=== PATIENT | male | born 1980 | race Caucasian/White ===

== ENCOUNTER 2018-03-04 12:35 | Emergency (ER) | payer SELFPAY ==
[~2018-03-04] VITALS: Ht 177.8 cm; Wt 80.5 kg
[~2018-03-04 12:35] MED LIST: ULTRAM 50MG TAB50 MG PO
[2018-03-04 12:44] VITALS: BP 130/79; PULSE 79; TEMP 98.3
== END 2018-03-04 14:50 | disposition home or self-care (01) ==
LOC: COL.ER 12:35
DX: S61.213A Laceration without foreign body of left middle finger without damage to nail, initial encounter (principal); S61.211A Laceration without foreign body of left index finger without damage to nail, initial encounter; Z23 Encounter for immunization; W26.8XXA Contact with other sharp object(s), not elsewhere classified, initial encounter; Y92.89 Other specified places as the place of occurrence of the external cause

== ENCOUNTER 2019-03-05 17:44 | Emergency (ER) | payer OTHER ==
[~2019-03-05] VITALS: Ht 177.8 cm; Wt 81.4 kg
[2019-03-05 17:54] VITALS: BP 129/79; TEMP 98.1
[2019-03-05 19:33] VITALS: PULSE 52
== END 2019-03-05 19:33 | disposition home or self-care (01) ==
LOC: COL.ER 17:44
DX: T59.0X1A Toxic effect of nitrogen oxides, accidental (unintentional), initial encounter (principal)